=== PATIENT | male | born 1990 | race Caucasian/White ===

== ENCOUNTER → 2017-11-29 18:07 | Outpatient (CLI) | payer OTHER, SELFPAY ==
--- NOTE | 2017-11-29 18:11 | DI.RAD.S_ITS ---
PROCEDURE: XR ANKLE LT MIN 3V INDICATIONS: acute left ankle injury, work related L and I TECHNIQUE: 3 views of the ankle were acquired. COMPARISON: None. FINDINGS: Bones: No fractures or dislocations. Ankle mortise is normally aligned. No suspicious bony lesions. Soft tissues: No tibiotalar joint effusion. Achilles tendon appears normal. IMPRESSION: No fracture. No osseous lesion. If there are persistent symptoms or clinical suspicion for pathology, then repeat radiographs or advanced imaging (CT, MRI or bone scan) should be considered for further evaluation. Dictated by: Bea Ku MD, PhD on 11/29/2017 at 18:23 Approved by: Bea Ku MD, PhD on 11/29/2017 at 18:24
== END ==
PROVIDERS: Visit Provider Physician Assistant
DX: S99.912A Unspecified injury of left ankle, initial encounter (principal)
CPT/HCPCS: 73610